=== PATIENT | male | born 1985 | race Caucasian/White ===

== ENCOUNTER 2017-09-18 13:46 | Emergency (ER) | payer MEDICAID | END 2017-09-18 18:06 | disposition home or self-care (01) | LOC: FTE 13:46 | DX: G89.18 Other acute postprocedural pain (principal); R10.32 Left lower quadrant pain | CPT/HCPCS: 76536; 99284-25 ==

== ENCOUNTER 2018-11-10 07:48 | Emergency (ER) | payer MEDICAID ==
[2018-11-10] MEDS: KETOROLAC 60 MG INJ IM (08:18)
== END 2018-11-10 08:40 | disposition home or self-care (01) ==
LOC: FTE 07:48
DX: S39.92XA Unspecified injury of lower back, initial encounter (principal); X50.1XXA Overexertion from prolonged static or awkward postures, initial encounter; Y92.9 Unspecified place or not applicable
CPT/HCPCS: 96372; 99284-25